=== PATIENT | male | born 1985 | race Caucasian/White ===

== ENCOUNTER 2017-06-09 07:02 | Day surgery (SDC) | payer OTHER ==
[~2017-06-09] VITALS: Ht 175.3 cm; Wt 68.0 kg
[~2017-06-09 07:02] MED LIST: CLONAZEPAM1 MG PO; FLONASE ALLERG9.9 ML NS; LAMICTAL100 MG PO; PRILOSEC OTC20 MG PO; SYNTHROID25 MCG PO; ZYRTEC10 MG PO
[2017-06-09] MEDS ORDERED: GABAPENTIN600 MG PO (07:18)
[2017-06-09] MEDS ORDERED: KLONOPIN1 MG PO (07:19)
--- NOTE | 2017-06-09 09:21 | NUR ---
06/09/17 0921 Kim Hay PT ARRIVED OT PACU. AWAKE AND ANSWERING QUESTIONS APPROPRIATLY. PT REPORTS 6/10 PAIN (SEE MAR FOR MEDICAITON GIVEN). PT DENIES NAUSEA.
--- NOTE | 2017-06-09 11:00 | NUR ---
PT DRANK JUICE WATER AND COFFEE ATE [employer] [facility]SHLEY WE[facility]. AMB TO BR AMB SLOWLY L LEG TENDER. DRSG CDI. VOIDS QS. READY TO GO HOME.
--- NOTE | 2017-06-09 11:01 | NUR ---
1100 REPORT CALLED TO [facility]. NO QUESTIONS. DCD PER WC [facility]
--- NOTE | 2017-06-14 07:13 | OR ---
[facility] [address], [place] [address] Signed DATE OF OPERATION: 06/09/2017 SURGEON: Mauricio Reveles MD PREOPERATIVE DIAGNOSIS: Peroneal nerve entrapment, left knee. POSTOPERATIVE DIAGNOSIS: Peroneal nerve entrapment, left knee. PROCEDURE: Decompression of the left peroneal nerve at the knee. SURGEON: Mauricio Reveles MD ANESTHESIA: General. SPECIMENS: There were no specimens. COMPLICATIONS: There were no complications. TOURNIQUET TIME: Was about [id number]. WHAT WAS DONE: The patient was taken to the operating room. After anesthesia was induced and airway secured, the patient was placed in the right lateral decubitus position and prepped and draped in a routine sterile fashion. We were able to palpate the peroneal nerve sulcus at the neck of the fibula and outlined a serpentine incision following its course. Skin was divided sharply. Subcutaneous tissue was bluntly spread. Hemostasis was achieved with a bipolar cautery. We then released the deep fascia and identified the nerve in the fibular groove. We then traced it distally into the anterior compartment and released it until the tip of the glove finger could be easily passed along it. Proximally, we did similarly until we reached the level of the popliteal fossa at which point we could again completely pass the tip of a glove finger along the course of the nerve. The wound was then gently irrigated and then closed in a standard fashion. A sterile dressing was applied. The patient was awakened to the recovery room where arrived in stable condition. Counts were correct and antibiotic protocols were followed. Electronically Signed By: MAURICIO REVELES MD 06/14/17 0713 PATIENT NAME: YONATHAN JOHN OPERATIVE REPORT DATE OF : 83 PHYSICIAN: MAURICIO REVELES MD REPORT #: [id number] REPORT IS CONFIDENTIAL AND NOT TO BE RELEASED WITHOUT AUTHORIZATION [address] [place] [address] Signed Mauricio Reveles MD WFB/MODL /[id number] cc: Abilio Lemus Electronically Signed By: MAURICIO REVELES MD 06/14/17 0713 PATIENT NAME: YONATHAN JOHN OPERATIVE REPORT DATE OF : 83 PHYSICIAN: MAURICIO REVELES MD REPORT #: [id number] REPORT IS CONFIDENTIAL AND NOT TO BE RELEASED WITHOUT AUTHORIZATION
== END 2017-06-09 10:58 | disposition home or self-care (01) ==
LOC: DS 07:02 → OPS 07:02 → DS 08:15 → OPS 08:15
PROVIDERS: Orthopaedic Surgery
PROC: 01NH0ZZ Release Peroneal Nerve, Open Approach (ICD-10-PCS; principal; 2017-06-09 08:15)
DX: G57.32 Lesion of lateral popliteal nerve, left lower limb (principal); Z79.51 Long term (current) use of inhaled steroids; Z79.899 Other long term (current) drug therapy
CPT/HCPCS: 01470; J0690; J1885; J2250; J2704; J3010; J7120